=== PATIENT | female | born 1975 | race Caucasian/White ===

== ENCOUNTER 2018-11-07 06:15 | Inpatient (IN) | payer OTHER ==
[2018-11-05 14:23] VITALS: BMI 32.8
[2018-11-07] MEDS ORDERED: HEPARIN NA (PORCINE) 5,000 UNITS/ML 1ML VIAL ONE (07:00)
[2018-11-07] MEDS ORDERED: DEXAMETHASONE SOD PHOSPHATE/PF 10 MG/ML SDV ONE (07:07)
[2018-11-07] MEDS ORDERED: BUPIVACAINE HCL/PF (5 MG/ML) 30 ML VIAL IJ ONE ×2 (07:07→07:46)
[2018-11-07] MEDS ORDERED: MIDAZOLAM HCL 2 MG/2 ML SINGLE DOSE VIAL ONE (07:07)
[2018-11-07] MEDS ORDERED: ROCURONIUM BROMIDE 50 MG/5 ML VIAL ONE ×2 (07:21→09:13)
[2018-11-07] MEDS ORDERED: PROPOFOL 20 ML ONE ×2 (07:21→08:52)
[2018-11-07] MEDS ORDERED: LIDOCAINE HCL/PF 2% SDV 5ML VIAL ONE (07:22)
[2018-11-07] MEDS ORDERED: SODIUM CHLORIDE 0.9% P/F 10 ML VIAL IJ ONE (07:22)
[2018-11-07] MEDS ORDERED: KETOROLAC TROMETHAMINE 30 MG/1 ML VIAL ONE (07:22)
[2018-11-07] MEDS ORDERED: DEXAMETHASONE SOD PHOSPHATE 4 MG/1 ML VIAL ONE (07:22)
[2018-11-07] MEDS ORDERED: ceFAZolin SODIUM 1 GM VIAL ONE (07:22)
[2018-11-07] MEDS ORDERED: ONDANSETRON 4 MG/2 ML VIAL ONE ×2 (07:22→10:50)
[2018-11-07] MEDS ORDERED: BUPIVACAINE HCL/PF 0.5% (5MG/ML) 10 ML VIAL ONE ×2 (07:26→09:00)
[2018-11-07] MEDS ORDERED: BUPIVACAINE LIPOSOME/PF (EXPAREL) 266 MG/20 ML VIAL ONE (07:46)
[2018-11-07] MEDS ORDERED: KETAMINE HCL 200 MG/20 ML VIAL ONE (08:11)
[2018-11-07] MEDS ORDERED: ePHEDrine SULFATE 50 MG/1 ML AMPULE ONE (08:36)
[2018-11-07] MEDS ORDERED: GLYCOPYRROLATE 0.2 MG/1 ML VIAL ONE ×2 (08:42→10:01)
[2018-11-07] MEDS ORDERED: NEOSTIGMINE METHYLSULFATE 0.5 MG/ML - 10 ML MDV ONE (08:44)
[2018-11-07] MEDS ORDERED: DESFLURANE GAS 240 ML BOTTLE IH ONE (09:18)
[2018-11-07] MEDS ORDERED: ONDANSETRON 4 MG/2 ML VIAL IVPUSH PRN ×2 (09:50→11:15)
[2018-11-07] MEDS ORDERED: LACTATED RINGERS SOLUTION 1,000 ML IV SCH (10:00)
[2018-11-07] MEDS ORDERED: D5-1/2NS+20 MEQ KCL - 20 MEQ/1,000 ML INFUS.BAG IV SCH (11:15)
[2018-11-07] MEDS ORDERED: ACETAMINOPHEN 325 MG TABLET (FP) PO PRN (11:15)
[2018-11-07] MEDS ORDERED: oxyCODONE HCL 5 MG TABLET PO PRN (11:15)
[2018-11-07] MEDS ORDERED: morphine SULFATE 4 MG/ML VIAL IVPB PRN (11:15)
[2018-11-07] MEDS ORDERED: IBUPROFEN 800 MG/8 ML IJ IVPB PRN (11:20)
[2018-11-07] MEDS ORDERED: ACETAMINOPHEN 1000 MG/100 ML VIAL (NON FORMULARY) IVPB SCH ×2 (12:00→12:55)
[2018-11-07] MEDS ORDERED: FAMOTIDINE 20 MG/50 ML IVPB 20 MG/50 ML MG IVPB ONE (12:30)
[2018-11-07] MEDS ORDERED: FAMOTIDINE 20 MG PREMIXED IVPB IVPB ONE (12:30)
[2018-11-07] MEDS: KETOROLAC TROMETHAMINE 15 MG/ML VIAL IVPUSH SCH ×2 (14:14→17:38)
[2018-11-07] MEDS: traMADol HCL 50 MG TABLET PO SCH ×2 (16:35→17:38)
[2018-11-07] MEDS: ACETAMINOPHEN 1000 MG/100 ML VIAL (NON FORMULARY) IVPB SCH ×2 (17:37→23:11)
[2018-11-08] MEDS: KETOROLAC TROMETHAMINE 15 MG/ML VIAL IVPUSH SCH ×2 (00:58→06:10)
[2018-11-08] MEDS: traMADol HCL 50 MG TABLET PO SCH ×3 (00:59→12:56)
[2018-11-08] MEDS: ACETAMINOPHEN 1000 MG/100 ML VIAL (NON FORMULARY) IVPB SCH (06:10)
[2018-11-08] MEDS ORDERED: IBUPROFEN 600 MG TABLET (FP) PO PRN (09:59)
[2018-11-08] MEDS ORDERED: LABETALOL HCL 200 MG TABLET (FP) PO SCH (10:00)
[2018-11-08] MEDS ORDERED: ACETAMINOPHEN 325 MG TABLET (FP) PO PRN (10:00)
[2018-11-08] MEDS ORDERED: HYDROCHLOROTHIAZIDE 25 MG TABLET (FP) PO SCH (10:00)
[2018-11-08] MEDS ORDERED: PANTOPRAZOLE SODIUM 40 MG VIAL IVPUSH SCH (10:00)
[2018-11-08] MEDS ORDERED: ENOXAPARIN NA (PORCINE) 40 MG/0.4 ML DISP.SYRIN SQ SCH (10:00)
[2018-11-08] MEDS: KETOROLAC TROMETHAMINE 10 MG TABLET PO SCH ×2 (10:49→12:56)
[2018-11-08] MEDS ORDERED: PT OWN MED DRAWER 7, Y5N ONE ×2 (10:52→12:55)
--- NOTE | 2018-11-08 10:54 | PN ---
Progress Note (short form) - Note Progress Note: ANESTHESIA POSTOP 43 yo Male POD#1 s/p Repair of incarcerated hernia with mesh, GETA and PNB Patient resting comfortably in chair. Reports pain is adequately controlled. Tolerating clears. VSS, Afebrile Continue current care. Encouraged IS and ambulation. No anesthetic complications.
[2018-11-08 11:53] VITALS: TEMP 97.9
--- NOTE | 2018-11-08 12:03 | PN ---
Progress Note (short form) - Note Progress Note: POD #1 Pt with complaints of intermitent pain to left abd/upper thigh. Slight nausea this am, tolerated clears. Martins removed and voiding without difficulty. Vital Signs Period Temp Pulse Resp BP Sys/Andrews Pulse Ox Last 24 Hr 97.4 F-98.3 F 61-93 13-18 103-132/47-75 99-100 NAHID: GEN: A&0x3, NAD. OOB to chair ABD: soft, non-distended, mild inc tenderness. Inc c/d/i without ecchymosis, drainage or erythema. Abdominal binder in place. Umbilicus without any evidence of ischemia. LE: no calf tenderness or swelling noted. WARD/SCDs in place. A/p: 43 yo female s/p hernia repair/component separation and panniculectomy Advance diet as tolerated Wear abdominal binder Nahid care Keep incisions clean and dry D/w Dr. Blakely, plan for discharge today. Call the office next week to schedule follow-up appointment in two weeks
[2018-11-08 12:49] VITALS: BP 100/86; PULSE 87
--- NOTE | 2018-11-08 13:02 | DS ---
DATE OF ADMISSION: 11/07/2018 DATE OF DISCHARGE: 11/08/2018 ADMITTING DIAGNOSIS: Complex incisional hernia. DISCHARGE DIAGNOSIS: Complex incisional hernia. BRIEF HISTORY: This is a 43-year-old female who presented to [facility] for surgical management of a complex incisional abdominal wall hernia. She underwent an open, bilateral-component, separation repair of this utilizing mesh. Please reference Dr. Ashvin Garza's operative report for further detail. Then, she proceeded with a closure of the abdomen done by Dr. Velez of Plastic Surgery. Please reference his operative note for details. She was kept in the hospital and admitted overnight. She remained well. She then discharged home, today, October. She is tolerating diet. She is ambulating. She is voiding. She will go home with her Nicolás-Soler drain which will be managed by the Plastic Surgery service. She has followup appointments with Dr. Velez, as well as Dr. Garza. She will only sponge bathe. Her wound, bandages, and drains will be managed by the Plastic Surgery service. She has also been given a prescription for oral Toradol, as well as Zofran, and Percocet. DO CHARANJIT [id number] MTDIan
--- NOTE | 2018-11-10 10:57 | OP ---
DATE OF OPERATION: 11/07/2018 SURGEON: Robert Velez MD MOBILITY S[employer]ER REPAIRER: Ez Diaz PA-C PREOPERATIVE DIAGNOSIS: Complex abdominal wall hernia. POSTOPERATIVE DIAGNOSIS: Complex abdominal wall hernia. OPERATIVE PROCEDURE: Abdominoplasty for a complex hernia repair. OPERATIVE INDICATION: The patient is a 43-year-old female who was brought to the operating room by Dr. Ashvin Garza for a complex hernia of the upper abdominal wall. This is a combined dictation with Dr. Garza for abdominal hernia repair and abdominoplasty. The risks and benefits of surgical versus nonsurgical alternatives as well as the material complications of this procedure on my part were described to the patient on multiple occasions preoperatively, including today in the holding area, where she was marked in the standing position for outline of the abdominoplasty approach for hernia repair and closure. All questions were asked and answered with her family in attendance. OPERATIVE PROCEDURE IN DETAIL: The patient was taken to the operating room and, after being placed supine on the operating room table, Venodyne boots were placed and a Martins catheter was inserted. At this point, after prepping and draping of the abdominal wall with a ChloraPrep solution over its entire extent from above the costal margins down to the pubis, attention was turned to the draping and timeout. At this point, I began the procedure by infiltrating 1% local lidocaine anesthesia with 1:100,000 epinephrine into the proposed markings above and below the abdominal wall in the usual elliptical fashion for abdominoplasty to incorporate the large lower pannus and approach to the hernia. After allowing topical anesthesia, an incision was made at the lower portion of the incision which was planned, down through the skin to subcutaneous tissue, down through the subcutaneous tissue to the underlying abdominal wall. All vessels which were encountered, which were large and dilated, were clamped, ligated, and divided. At this point, dissection was carried up to the umbilicus, which was circumscribed and dropped back, and then the upper abdominal incision was made down through the skin to the subcutaneous tissue and through down to the anterior rectus fascia. Dissection was then carried superiorly along the costal margin up to the hernia, which was exposed in the right upper quadrant. The lower abdominal pannus was removed and sent for pathologic diagnosis. It weighed 2550 g. Hemostasis was meticulously obtained at this point and then the operation was turned over to Dr. Garza, who performed complex hernia repair, which will be dictated under a separate cover. After the hernia was repaired, the abdominal wall was plicated and imbricated in the midline. Using No. 1 V-Loc suture in a running fashion, the superior and inferior portions of the diastasis were repaired using running and locked sutures. This gave good contour and repair of the hernia site as well as the abdominal wall. Once this was accomplished, copious irrigation of the wound was performed, hemostasis was again meticulously obtained throughout the pocket. At this point, two 19 Horacio drains were brought out through separate stab wounds, laterally to the incision in the lower abdomen and then the skin and subcutaneous tissue was advanced and closed in the sitting position, or semi-[place] position. This was brought down to the new point inferiorly at the pubic area and then sutured using 2-0 Vicryl sutures on Demond fascia, 2-0 V-Loc in a running subdermal suture, and a subcuticular suture using 3-0 V-Loc suture in a running fashion. The umbilicus, which had been circumscribed and dropped back, was brought out into its new anatomic position using the eyeglass technique. This was then inset using 3-0 Biosyn suture on the deep fascia, which was tacked down, and 5-0 plain catgut suture. Good shape and contour were seen. Good viability of the skin flaps was seen at this point. Dermabond, Steri-Strips, and a compressive dressing with a binder were placed. She was awakened, extubated, and transferred to the recovery room in a bed in the semi-[place] sitting position. She tolerated procedure well. ROBERT VELEZ M.D. [id number]
--- NOTE | 2018-11-12 13:05 | PATH ---
Surgical Pathology Report Patient Name: HOLLAND CHENG Med. Rec. #: [id number] /Age/Gender: 1975 (Age: 43) / F Account: [id number] [facility] Taken: 11/07/2018 Received: 11/07/2018 Reported: 11/11/2018 Physicians: Ashvin Garza M.D. Specimen(s) Received ABDOMINAL WALL Clinical History Ventral hernia with obstruction, without gangrene Final Diagnosis ABDOMINAL WALL, VENTRAL/INCISIONAL ABDOMINAL WALL HERNIA REPAIR: SKIN AND ADIPOSE TISSUE, DESCRIBED (GROSS EXAMINATION ONLY). Electronically Signed Liana Hernández M.D. Gross Description Received in formalin, labeled "abdominal wall" is a 54 x 21 x 3 cm portion of light eddy skin with underlying adipose tissue. No gross lesions are identified. For gross examination only. AE/11/07/2018 ebram/11/07/2018
== END 2018-11-08 13:14 | disposition home or self-care (01) | DRG 355 ==
LOC: FASUSAT 06:15 → FM/S 13:35
PROVIDERS: ADMIT Surgery; ATTEND Surgery
PROC: 0WUF0JZ Supplement Abdominal Wall with Synthetic Substitute, Open Approach (ICD-10-PCS; principal; 2018-11-07 08:38)
DX: K43.6 Other and unspecified ventral hernia with obstruction, without gangrene (principal)
CPT/HCPCS: 81025; 88300-TC; 94760; J0131; J1644